=== PATIENT | male | born 1995 | race African-American/Black ===

== ENCOUNTER 2024-03-08 13:46 | Inpatient (IN) | payer OTHER ==
[~2024-03-08] VITALS: Ht 175.3 cm; Wt 89.9 kg
[2024-03-08 16:39] LABS: BASO # 0.2 10^3/uL (0.0-0.2); BASO % 0.6 % (0.0-1.0); EOS # 0.1 10^3/uL (0.0-0.5); EOS % 0.3 % (0.0-3.0); HEMATOCRIT 52.3 % (42.0-52.0); HEMOGLOBIN 18.6 g/dl (13.5-17.5); LYMPH # 2.4 10^3/uL (1.5-5.0); MEAN CORPUSCULAR HEMOGLOBIN 31.4 pg (27.0-33.0); MEAN CORPUSCULAR HGB CONC 35.6 g/dl (32.0-36.5); MEAN CORPUSCULAR VOLUME 88.3 fl (80.0-96.0); MONO % 8.8 % (2.0-8.0); NEUTROPHILS # 24.7 10^3/uL (1.5-8.5); PLATELET COUNT, AUTOMATED 193 10^3/uL (150-450); RED BLOOD COUNT 5.92 10^6/uL (4.30-6.10)
[2024-03-08 16:44] LABS: MONO # 2.7 10^3/uL (0.0-0.8); WHITE BLOOD COUNT 30.5 10^3/uL (4.0-10.0)
[2024-03-08] MEDS: PANTOPRAZOLE 40MG VIAL IV ONE (17:10)
[2024-03-08] MEDS: NS 2,660 ML in IV 1 EA IV ONE (17:10)
[2024-03-08] MEDS: ACETAMINOPHEN 325 MG TAB PO ONE (17:10)
[2024-03-08 17:11] LABS: LIPASE 86 U/L (12-53)
[2024-03-08 17:31] LABS: AMYLASE 651 U/L (30-118)
[2024-03-08 17:43] LABS: PROCALCITONIN 14.57 ng/ml
[2024-03-08 17:59] LABS: ALBUMIN 4.5 G/DL (3.2-5.2); ALKALINE PHOSPHATASE 127 U/L (46-116); ALT/SGPT 918 U/L (7.0-40); AST/SGOT > 6000 U/L (<34); BILIRUBIN,DIRECT 0.3 MG/DL (<0.4); BLOOD UREA NITROGEN 27 MG/DL (9-23); CALCIUM LEVEL 7.9 MG/DL (8.5-10.1); CARBON DIOXIDE LEVEL 17 MMOL/L (20-31); CHLORIDE LEVEL 96 MMOL/L (98-107); CK-MB VALUE MASS 1347.8 NG/ML (<3.6); CREATININE FOR GFR 3.17 MG/DL (0.70-1.30); GLOMERULAR FILTRATION RATE 29.9 (>60); GLUCOSE, FASTING 91 MG/DL (60-100); MAGNESIUM LEVEL 4.4 MG/DL (1.8-2.4); PHOSPHORUS LEVEL 8.4 MG/DL (2.5-4.9); SODIUM LEVEL 132 MMOL/L (136-145); TOTAL PROTEIN 8.2 G/DL (5.7-8.2)
[2024-03-08 19:10] LABS: C REACTIVE PROTEIN QUANTITATIV < 0.40 MG/DL (<1.0); ETHYL ALCOHOL (ETHANOL) < 0.003 % (0.000-0.010)
[2024-03-08 19:11] LABS: SALICYLATE LEVEL 4.1 MG/DL (<30)
[2024-03-08 19:19] LABS: ABG BASE EXCESS -12.7 (-2.0-2.0); ABG HCO3 12.9 MMOL/L (22.0-26.0); ABG O2 SATURATION 97.9 % (95.0-99.0); ABG PARTIAL PRESSURE O2 119.6 mmHg (75.0-100.0); ABG STANDARD HCO3 14.9 MMOL/L. (22.0-26.0); ABG TOTAL CO2 13.8 MMOL/L (22.0-29.0); ABG pH (ARTERIAL) 7.252 UNITS (7.350-7.450)
[2024-03-08 19:28] LABS: INR 1.58; PARTIAL THROMBOPLASTIN TIME 34.3 SECONDS (24.8-34.2); PROTHROMBIN TIME 18.3 SECONDS (12.5-14.5)
[2024-03-08] MEDS: MORPHINE 2 MG/ML 1ML VIAL IV ONE (19:30)
[2024-03-08] MEDS: PIPERACILLIN/TAZOBACTAM SOD 4.5 GM in D5W MINI-BAG PLUS 50 ML IV ONE (19:30)
[2024-03-08 19:53] LABS: CK-MB VALUE MASS 1240.3 NG/ML (<3.6)
[2024-03-08] MEDS: SODIUM BICARBONATE 150 MEQ in D5W 1,000 ML IV SCH (20:19)
[2024-03-08] MEDS ORDERED: PIPERACILLIN/TAZOBACTAM SOD 4.5 GM in D5W MINI-BAG PLUS 50 ML IV SCH (21:20)
[2024-03-08] MEDS ORDERED: ACETAMINOPHEN TAB 650MG DOSE (2X325MG) PO PRN (21:20)
[2024-03-08] MEDS ORDERED: MOM 30ML SUSPENSION UDC PO PRN (21:20)
[2024-03-08 21:24] LABS: ERYTHROCYTE SEDIMENTATION RATE 17 mm/hr (0-15)
[2024-03-08] MEDS ORDERED: BENA25CA4 PO (21:36)
[2024-03-08] MEDS ORDERED: HOME MED LIST COMPLETE! XX SCH (21:40)
[2024-03-08] MEDS ORDERED: PROHANCE 279.3MG/ML 5ML VIAL As Ordered ONE (21:54)
[2024-03-08] MEDS ORDERED: PROHANCE 279.3MG/ML 15ML VIAL As Ordered ONE (21:54)
[2024-03-08 22:36] LABS: CK-MB VALUE MASS 1302.1 NG/ML (<3.6)
[2024-03-08] MEDS: VANCOMYCIN HCL 1,000 MG, VIAL MATE ADAPTER 1 EACH in NS 250 ML IV SCH (23:49)
[2024-03-08 23:58] LABS: HEMATOCRIT 45.2 % (42.0-52.0); MEAN CORPUSCULAR HEMOGLOBIN 31.2 pg (27.0-33.0); MEAN CORPUSCULAR HGB CONC 35.4 g/dl (32.0-36.5); MEAN CORPUSCULAR VOLUME 88.1 fl (80.0-96.0); PLATELET COUNT, AUTOMATED 124 10^3/uL (150-450); RED BLOOD COUNT 5.13 10^6/uL (4.30-6.10); WHITE BLOOD COUNT 23.5 10^3/uL (4.0-10.0)
[2024-03-09] VITALS (7 sets, daily range): BP systolic 138–163; BP diastolic 84–93; TEMP 97.4–99.9; O2SAT 96–98
[2024-03-09] MEDS: SODIUM BICARBONATE 75 MEQ in NS 0.45% 1,000 ML IV SCH (00:26)
[2024-03-09] MEDS: MORPHINE 2 MG/ML 1ML VIAL IV PRN (00:27)
[2024-03-09 00:36] LABS: CK-MB VALUE MASS 1432.1 NG/ML (<3.6)
[2024-03-09 00:44] LABS: ALBUMIN 3.2 G/DL (3.2-5.2); ALKALINE PHOSPHATASE 97 U/L (46-116); ALT/SGPT 1235 U/L (7.0-40); AST/SGOT > 6000 U/L (<34); BILIRUBIN,TOTAL 1.2 MG/DL (0.3-1.2); BLOOD UREA NITROGEN 35 MG/DL (9-23); CALCIUM LEVEL 6.5 MG/DL (8.5-10.1); CARBON DIOXIDE LEVEL 19 MMOL/L (20-31); CHLORIDE LEVEL 101 MMOL/L (98-107); CREATININE FOR GFR 3.59 MG/DL (0.70-1.30); GLOMERULAR FILTRATION RATE 25.9 (>60); GLUCOSE, FASTING 105 MG/DL (60-100); POTASSIUM SERUM 5.3 MMOL/L (3.5-5.1); SODIUM LEVEL 133 MMOL/L (136-145)
[2024-03-09] MEDS: VANCOMYCIN HCL 1,000 MG, VIAL MATE ADAPTER 1 EACH in NS 250 ML IV ONE (00:52)
[2024-03-09 00:58] LABS: HEPATITIS B SURFACE ANTIGEN NEGATIVE (NEGATIVE)
[2024-03-09 01:11] LABS: HIV 1&2 SCREEN NEGATIVE (NEGATIVE)
[2024-03-09 01:19] LABS: HEPATITIS B CORE ANTIBODY IGM NEGATIVE (NEGATIVE); HEPATITIS C VIRUS ABY INDEX < 0.02 INDEX (<0.8)
[2024-03-09 01:20] LABS: LDH LACTATE DEHYDROGENASE > 4500 U/L (120-246); URIC ACID 23.6 MG/DL (3.7-9.2)
[2024-03-09] MEDS: PIPERACILLIN/TAZOBACTAM SOD 3.375 GM in D5W MINI-BAG PLUS 50 ML IV SCH (01:52)
[2024-03-09] MEDS: CALCIUM GLUCONATE 1,000 MG in D5W MINI-BAG PLUS 100 ML IV ONE ×4 (01:58→17:36)
[2024-03-09 02:17] LABS: MAGNESIUM LEVEL 3.1 MG/DL (1.8-2.4)
[2024-03-09] MEDS: FUROSEMIDE 40MG/4ML VIAL IV ONE (02:34)
[2024-03-09 05:51] LABS: HEMATOCRIT 39.7 % (42.0-52.0); HEMOGLOBIN 14.2 g/dl (13.5-17.5); MEAN CORPUSCULAR HEMOGLOBIN 31.1 pg (27.0-33.0); MEAN CORPUSCULAR HGB CONC 35.8 g/dl (32.0-36.5); MEAN CORPUSCULAR VOLUME 86.9 fl (80.0-96.0); PLATELET COUNT, AUTOMATED 103 10^3/uL (150-450); RED BLOOD COUNT 4.57 10^6/uL (4.30-6.10); WHITE BLOOD COUNT 18.6 10^3/uL (4.0-10.0)
[2024-03-09 06:18] LABS: PROCALCITONIN 31.88 ng/ml
[2024-03-09 06:21] LABS: ABG BASE EXCESS -9.5 (-2.0-2.0); ABG HCO3 15.3 MMOL/L (22.0-26.0); ABG O2 SATURATION 96.9 % (95.0-99.0); ABG PARTIAL PRESSURE CO2 30.6 mmHg (35.0-45.0); ABG PARTIAL PRESSURE O2 100.6 mmHg (75.0-100.0); ABG TOTAL CO2 16.2 MMOL/L (22.0-29.0); ABG pH (ARTERIAL) 7.316 UNITS (7.350-7.450)
[2024-03-09 07:32] LABS: INR 2.03; PROTHROMBIN TIME 22.2 SECONDS (12.5-14.5)
[2024-03-09 07:36] LABS: ALBUMIN 2.9 G/DL (3.2-5.2); ALKALINE PHOSPHATASE 86 U/L (46-116); ALT/SGPT 1506 U/L (7.0-40); AST/SGOT > 6000 U/L (<34); BILIRUBIN,TOTAL 1.5 MG/DL (0.3-1.2); BLOOD UREA NITROGEN 41 MG/DL (9-23); CALCIUM LEVEL 5.8 MG/DL (8.5-10.1); CARBON DIOXIDE LEVEL 18 MMOL/L (20-31); CHLORIDE LEVEL 98 MMOL/L (98-107); CK-MB VALUE MASS 1333.9 NG/ML (<3.6); CREATININE FOR GFR 4.05 MG/DL (0.70-1.30); GLOMERULAR FILTRATION RATE 22.5 (>60); GLUCOSE, FASTING 105 MG/DL (60-100); MAGNESIUM LEVEL 2.8 MG/DL (1.8-2.4); POTASSIUM SERUM 4.4 MMOL/L (3.5-5.1); SODIUM LEVEL 130 MMOL/L (136-145); TOTAL PROTEIN 5.3 G/DL (5.7-8.2)
[2024-03-09] MEDS: PHYTONADIONE 5 MG TAB PO ONE (09:47)
[2024-03-09] MEDS: methylPREDNISolone 40MG 1ML VIAL IV SCH (12:14)
[2024-03-09] MEDS: MORPHINE 4 MG/ML 1ML VIAL IV PRN (12:27)
[2024-03-09 14:53] LABS: ALKALINE PHOSPHATASE 98 U/L (46-116); ALT/SGPT 2376 U/L (7.0-40); AST/SGOT > 6000 U/L (<34); BILIRUBIN,TOTAL 2.3 MG/DL (0.3-1.2); BLOOD UREA NITROGEN 46 MG/DL (9-23); CALCIUM LEVEL 6.3 MG/DL (8.5-10.1); CARBON DIOXIDE LEVEL 21 MMOL/L (20-31); CHLORIDE LEVEL 96 MMOL/L (98-107); CK-MB VALUE MASS 1206.8 NG/ML (<3.6); GLUCOSE, FASTING 87 MG/DL (60-100); MAGNESIUM LEVEL 2.8 MG/DL (1.8-2.4); PHOSPHORUS LEVEL 8.9 MG/DL (2.5-4.9); POTASSIUM SERUM 5.2 MMOL/L (3.5-5.1); SODIUM LEVEL 130 MMOL/L (136-145); TOTAL PROTEIN 5.6 G/DL (5.7-8.2)
[2024-03-09] MEDS: SOD POLYSTYRENE SULFONATE SUSP 15GM 60ML UD PO ONE (16:20)
[2024-03-09 16:53] LABS: MYOGLOBIN SCREEN, URINE POSITIVE (NEGATIVE)
[2024-03-09 17:21] LABS: AMPHETAMINES LEVEL URINE NEGATIVE (NEGATIVE); BARBITURATES URINE NEGATIVE (NEGATIVE); BENZODIAZEPINES URINE NEGATIVE (NEGATIVE); CANNABINOIDS URINE NEGATIVE (NEGATIVE); COCAINE METABOLITE URINE NEGATIVE (NEGATIVE); METHADONE URINE NEGATIVE (NEGATIVE); PHENCYCLIDINE URINE NEGATIVE (NEGATIVE)
[2024-03-09 17:23] LABS: OPIATES URINE POSITIVE (NEGATIVE)
[2024-03-09 20:23] LABS: ALBUMIN 2.9 G/DL (3.2-5.2); ALKALINE PHOSPHATASE 96 U/L (46-116); ALT/SGPT 2917 U/L (7.0-40); AST/SGOT > 6000 U/L (<34); BILIRUBIN,TOTAL 2.2 MG/DL (0.3-1.2); BLOOD UREA NITROGEN 54 MG/DL (9-23); CALCIUM LEVEL 6.3 MG/DL (8.5-10.1); CARBON DIOXIDE LEVEL 19 MMOL/L (20-31); CHLORIDE LEVEL 94 MMOL/L (98-107); CREATININE FOR GFR 5.34 MG/DL (0.70-1.30); GLOMERULAR FILTRATION RATE 16.4 (>60); GLUCOSE, FASTING 103 MG/DL (60-100); MAGNESIUM LEVEL 2.6 MG/DL (1.8-2.4); PHOSPHORUS LEVEL 8.2 MG/DL (2.5-4.9); POTASSIUM SERUM 5.1 MMOL/L (3.5-5.1); SODIUM LEVEL 126 MMOL/L (136-145); TOTAL PROTEIN 5.5 G/DL (5.7-8.2)
[2024-03-10] VITALS (43 sets, daily range): BP systolic 135–171; BP diastolic 80–105; TEMP 97.5–99.8; O2SAT 92–100
[2024-03-10 03:07] LABS: ALBUMIN 2.7 G/DL (3.2-5.2); ALKALINE PHOSPHATASE 92 U/L (46-116); ALT/SGPT 3019 U/L (7.0-40); AST/SGOT > 6000 U/L (<34); BILIRUBIN,TOTAL 2.3 MG/DL (0.3-1.2); BLOOD UREA NITROGEN 60 MG/DL (9-23); CALCIUM LEVEL 5.6 MG/DL (8.5-10.1); CARBON DIOXIDE LEVEL 21 MMOL/L (20-31); CHLORIDE LEVEL 90 MMOL/L (98-107); CREATININE FOR GFR 6.16 MG/DL (0.70-1.30); GLOMERULAR FILTRATION RATE 13.9 (>60); GLUCOSE, FASTING 105 MG/DL (60-100); MAGNESIUM LEVEL 2.4 MG/DL (1.8-2.4); PHOSPHORUS LEVEL 8.7 MG/DL (2.5-4.9); POTASSIUM SERUM 5.1 MMOL/L (3.5-5.1); SODIUM LEVEL 123 MMOL/L (136-145)
[2024-03-10] MEDS: NS 1,000 ML IV SCH (03:59)
[2024-03-10] MEDS: CALCIUM GLUCONATE 1,000 MG in D5W MINI-BAG PLUS 100 ML IV ONE ×2 (06:41→09:46)
[2024-03-10] MEDS: FUROSEMIDE 100MG/10ML VIAL IV ONE (06:42)
[2024-03-10] MEDS ORDERED: SODIUM CHLORIDE 0.9% 1000ML IV PRN (08:25)
[2024-03-10] MEDS ORDERED: HEPARIN 1,000UNITS/ML 10ML VIAL (FOR RADIOLOGY & DIALYSIS ONLY) XX SCH (08:25)
[2024-03-10] MEDS ORDERED: HEPARIN 1,000UNITS/ML 10ML VIAL (FOR RADIOLOGY & DIALYSIS ONLY) IV PRN (08:25)
[2024-03-10 11:26] LABS: BASO % 0.2 % (0.0-1.0); LYMPH # 0.7 10^3/uL (1.5-5.0); LYMPH % 5.1 % (24.0-44.0); MEAN CORPUSCULAR HEMOGLOBIN 31.1 pg (27.0-33.0); MEAN CORPUSCULAR HGB CONC 36.5 g/dl (32.0-36.5); MEAN CORPUSCULAR VOLUME 85.4 fl (80.0-96.0); MONO # 0.3 10^3/uL (0.0-0.8); MONO % 2.3 % (2.0-8.0); NEUTROPHILS # 11.8 10^3/uL (1.5-8.5); NEUTROPHILS % 91.8 % (36.0-66.0); RED BLOOD COUNT 3.63 10^6/uL (4.30-6.10); WHITE BLOOD COUNT 12.8 10^3/uL (4.0-10.0)
[2024-03-10 11:37] LABS: INR 2.55; PARTIAL THROMBOPLASTIN TIME 38.4 SECONDS (24.8-34.2); PROTHROMBIN TIME 26.5 SECONDS (12.5-14.5)
[2024-03-10 11:51] LABS: FREE T4 0.71 NG/DL (0.89-1.76); THYROID STIMULATING HORMONE 1.433 uIU/ML (0.55-4.78)
[2024-03-10 11:53] LABS: HEMOGLOBIN 11.3 g/dl (13.5-17.5)
[2024-03-10 11:54] LABS: PLATELET COUNT, AUTOMATED 47 10^3/uL (150-450)
[2024-03-10] MEDS: PHYTONADIONE 5 MG TAB PO ONE (12:07)
[2024-03-10 12:20] LABS: ALBUMIN 2.5 G/DL (3.2-5.2); ALKALINE PHOSPHATASE 88 U/L (46-116); ALT/SGPT 3327 U/L (7.0-40); AST/SGOT > 6000 U/L (<34); BILIRUBIN,TOTAL 2.6 MG/DL (0.3-1.2); BLOOD UREA NITROGEN 62 MG/DL (9-23); CARBON DIOXIDE LEVEL 21 MMOL/L (20-31); CHLORIDE LEVEL 94 MMOL/L (98-107); CREATININE FOR GFR 6.36 MG/DL (0.70-1.30); FERRITIN 14747.8 NG/ML (10.5-307.3); FREE T3 1.2 PG/ML (2.3-4.2); GLOMERULAR FILTRATION RATE 13.4 (>60); GLUCOSE, FASTING 106 MG/DL (60-100); MAGNESIUM LEVEL 2.1 MG/DL (1.8-2.4); POTASSIUM SERUM 4.6 MMOL/L (3.5-5.1); SODIUM LEVEL 127 MMOL/L (136-145); TOTAL PROTEIN 4.8 G/DL (5.7-8.2)
[2024-03-10] MEDS: D5W IV ONE ×2 (15:44→20:00)
[2024-03-10] MEDS: ACETYLCYSTEINE IV ONE ×2 (15:44→20:00)
[2024-03-10] MEDS: ACETYLCYSTEINE 4,600 MG in D5W 500 ML IV ONE (16:55)
[2024-03-10 17:25] LABS: ALBUMIN 2.3 G/DL (3.2-5.2); BLOOD UREA NITROGEN 35 MG/DL (9-23); CALCIUM LEVEL 6.6 MG/DL (8.5-10.1); CARBON DIOXIDE LEVEL 21 MMOL/L (20-31); CHLORIDE LEVEL 101 MMOL/L (98-107); CREATININE FOR GFR 3.92 MG/DL (0.70-1.30); GLOMERULAR FILTRATION RATE 23.4 (>60); GLUCOSE, FASTING 122 MG/DL (60-100); PHOSPHORUS LEVEL 6.9 MG/DL (2.5-4.9); SODIUM LEVEL 134 MMOL/L (136-145); TRIGLYCERIDES LEVEL 105 MG/DL (<150)
[2024-03-11] VITALS (45 sets, daily range): BP systolic 140–162; BP diastolic 78–97; TEMP 88.3–100.4; O2SAT 94–100
[2024-03-11] MEDS: PIPERACILLIN/TAZOBACTAM SOD 4.5 GM in D5W MINI-BAG PLUS 50 ML IV SCH (00:28)
[2024-03-11] MEDS ORDERED: HEPARIN 1,000UNITS/ML 10ML VIAL (FOR RADIOLOGY & DIALYSIS ONLY) XX SCH (03:50)
[2024-03-11] MEDS ORDERED: SODIUM CHLORIDE 0.9% 1000ML IV PRN (03:50)
[2024-03-11 05:08] LABS: BASO % 0.2 % (0.0-1.0); EOS % 0.1 % (0.0-3.0); HEMATOCRIT 27.5 % (42.0-52.0); HEMOGLOBIN 10.1 g/dl (13.5-17.5); LYMPH # 1.2 10^3/uL (1.5-5.0); LYMPH % 7.5 % (24.0-44.0); MEAN CORPUSCULAR VOLUME 84.4 fl (80.0-96.0); MONO # 0.7 10^3/uL (0.0-0.8); MONO % 4.6 % (2.0-8.0); NEUTROPHILS # 13.4 10^3/uL (1.5-8.5); NEUTROPHILS % 84.8 % (36.0-66.0); RED BLOOD COUNT 3.26 10^6/uL (4.30-6.10); WHITE BLOOD COUNT 15.8 10^3/uL (4.0-10.0)
[2024-03-11 05:14] LABS: MEAN CORPUSCULAR HGB CONC 36.7 g/dl (32.0-36.5); PLATELET COUNT, AUTOMATED 41 10^3/uL (150-450)
[2024-03-11 06:41] LABS: ALBUMIN 2.4 G/DL (3.2-5.2); ALKALINE PHOSPHATASE 90 U/L (46-116); ALT/SGPT 4927 U/L (7.0-40); AST/SGOT > 6000 U/L (<34); BLOOD UREA NITROGEN 54 MG/DL (9-23); CALCIUM LEVEL 6.1 MG/DL (8.5-10.1); CARBON DIOXIDE LEVEL 20 MMOL/L (20-31); CHLORIDE LEVEL 98 MMOL/L (98-107); CPK CREATINE PHOSPHOKINASE > 39000 U/L (46-171); CREATININE FOR GFR 6.29 MG/DL (0.70-1.30); GLOMERULAR FILTRATION RATE 13.6 (>60); GLUCOSE, FASTING 99 MG/DL (60-100); SODIUM LEVEL 130 MMOL/L (136-145); TOTAL PROTEIN 4.7 G/DL (5.7-8.2)
[2024-03-11 06:41] LABS: CPK CREATINE PHOSPHOKINASE > 39000 U/L (46-171)
[2024-03-11 07:04] LABS: CPK CREATINE PHOSPHOKINASE > 39000 U/L (46-171)
[2024-03-11 07:05] LABS: CPK CREATINE PHOSPHOKINASE > 39000 U/L (46-171)
[2024-03-11 07:06] LABS: CPK CREATINE PHOSPHOKINASE > 39000 U/L (46-171)
[2024-03-11 07:07] LABS: CPK CREATINE PHOSPHOKINASE > 39000 U/L (46-171)
[2024-03-11 07:08] LABS: CPK CREATINE PHOSPHOKINASE > 39000 U/L (46-171)
[2024-03-11 07:08] LABS: CPK CREATINE PHOSPHOKINASE > 39000 U/L (46-171)
[2024-03-11 07:08] LABS: CPK CREATINE PHOSPHOKINASE > 39000 U/L (46-171)
[2024-03-11] MEDS: ONDANSETRON 4MG 2ML VIAL IV PRN (09:28)
[2024-03-11] MEDS: HEPARIN 1,000UNITS/ML 10ML VIAL (FOR RADIOLOGY & DIALYSIS ONLY) IV PRN (10:05)
[2024-03-11 12:11] LABS: HEPATITIS B CORE ANTIBODY IGG NON-REACTIVE (NON-REACTIVE)
[2024-03-11] MEDS: SENNA 8.6 MG TAB (SENOKOT) PO SCH (20:25)
[2024-03-12] VITALS (40 sets, daily range): BP systolic 134–195; BP diastolic 75–92; TEMP 98.3–99.6; O2SAT 93–99
[2024-03-12] MEDS ORDERED: SODIUM CHLORIDE 0.9% 1000ML IV PRN (00:10)
[2024-03-12] MEDS ORDERED: HEPARIN 1,000UNITS/ML 10ML VIAL (FOR RADIOLOGY & DIALYSIS ONLY) IV PRN (00:10)
[2024-03-12 05:42] LABS: BASO # 0.1 10^3/uL (0.0-0.2); BASO % 0.5 % (0.0-1.0); EOS # 0.4 10^3/uL (0.0-0.5); EOS % 2.8 % (0.0-3.0); HEMATOCRIT 25.9 % (42.0-52.0); HEMOGLOBIN 9.4 g/dl (13.5-17.5); LYMPH # 1.7 10^3/uL (1.5-5.0); MEAN CORPUSCULAR HGB CONC 36.3 g/dl (32.0-36.5); MEAN CORPUSCULAR VOLUME 85.5 fl (80.0-96.0); MONO # 1.1 10^3/uL (0.0-0.8); MONO % 7.5 % (2.0-8.0); NEUTROPHILS # 11.3 10^3/uL (1.5-8.5); NEUTROPHILS % 74.2 % (36.0-66.0); RED BLOOD COUNT 3.03 10^6/uL (4.30-6.10); WHITE BLOOD COUNT 15.2 10^3/uL (4.0-10.0)
[2024-03-12 05:47] LABS: PLATELET COUNT, AUTOMATED 43 10^3/uL (150-450)
[2024-03-12 06:42] LABS: ALBUMIN 2.4 G/DL (3.2-5.2); ALKALINE PHOSPHATASE 92 U/L (46-116); ALT/SGPT 3751 U/L (7.0-40); AST/SGOT 3223 U/L (<34); BILIRUBIN,TOTAL 1.7 MG/DL (0.3-1.2); BLOOD UREA NITROGEN 54 MG/DL (9-23); CALCIUM LEVEL 6.4 MG/DL (8.5-10.1); CARBON DIOXIDE LEVEL 22 MMOL/L (20-31); CHLORIDE LEVEL 100 MMOL/L (98-107); CPK CREATINE PHOSPHOKINASE > 39000 U/L (46-171); CREATININE FOR GFR 6.43 MG/DL (0.70-1.30); GLOMERULAR FILTRATION RATE 13.2 (>60); GLUCOSE, FASTING 79 MG/DL (60-100); POTASSIUM SERUM 4.5 MMOL/L (3.5-5.1); SODIUM LEVEL 132 MMOL/L (136-145); TOTAL PROTEIN 4.4 G/DL (5.7-8.2)
[2024-03-12] MEDS: HEPARIN 1,000UNITS/ML 10ML VIAL (FOR RADIOLOGY & DIALYSIS ONLY) XX SCH (08:38)
[2024-03-12] MEDS: oxyCODONE 5MG TAB PO PRN (15:00)
[2024-03-12] MEDS ORDERED: PILL CUTTER 1 EACH XX PRN (22:15)
[2024-03-12] MEDS: **hydrALAZINE HCL** 25 MG TAB PO ONE (22:26)
[2024-03-13] VITALS (19 sets, daily range): BP systolic 157–180; BP diastolic 76–100; TEMP 97.9–98.6; O2SAT 90–96
[2024-03-13] MEDS: **hydrALAZINE HCL** 25 MG TAB PO ONE (00:05)
[2024-03-13 05:21] LABS: HEMOGLOBIN 9.8 g/dl (13.5-17.5); MEAN CORPUSCULAR HEMOGLOBIN 31.2 pg (27.0-33.0); MEAN CORPUSCULAR HGB CONC 36.3 g/dl (32.0-36.5); RED BLOOD COUNT 3.14 10^6/uL (4.30-6.10); WHITE BLOOD COUNT 19.5 10^3/uL (4.0-10.0)
[2024-03-13 05:22] LABS: PLATELET COUNT, AUTOMATED 61 10^3/uL (150-450)
[2024-03-13] MEDS ORDERED: SODIUM CHLORIDE 0.9% 1000ML IV PRN (05:30)
[2024-03-13] MEDS ORDERED: HEPARIN 1,000UNITS/ML 10ML VIAL (FOR RADIOLOGY & DIALYSIS ONLY) XX SCH (05:30)
[2024-03-13 05:40] LABS: C REACTIVE PROTEIN QUANTITATIV 9.1 MG/DL (<1.0)
[2024-03-13 05:41] LABS: INR 1.3; PARTIAL THROMBOPLASTIN TIME 33.6 SECONDS (24.8-34.2); PROTHROMBIN TIME 15.8 SECONDS (12.5-14.5)
[2024-03-13 05:46] LABS: ATYPICAL LYMPH 1 % (0-5); EOSINOPHILS 7 % (0-3); LYMPHOCYTES 8 % (16-44); METAMYELOCYTES 1 % (0-0); MONOCYTES 6 % (0-5); NEUTROPHILS 75 % (28-66); PLATELET ESTIMATE DECREASED (NORMAL)
[2024-03-13 05:48] LABS: PROCALCITONIN 6.51 ng/ml
[2024-03-13 06:28] LABS: ALBUMIN 2.4 G/DL (3.2-5.2); BILIRUBIN,TOTAL 1.6 MG/DL (0.3-1.2); CALCIUM LEVEL 6.9 MG/DL (8.5-10.1); CREATININE FOR GFR 6.89 MG/DL (0.70-1.30); GLOMERULAR FILTRATION RATE 12.2 (>60); MAGNESIUM LEVEL 1.9 MG/DL (1.8-2.4); POTASSIUM SERUM 4.1 MMOL/L (3.5-5.1); TOTAL PROTEIN 4.6 G/DL (5.7-8.2)
[2024-03-13] MEDS: amLODIPine 5 MG TAB PO ONE (06:37)
[2024-03-13] MEDS ORDERED: amLODIPine 5 MG TAB PO SCH (09:00)
[2024-03-13] MEDS: HEPARIN 1,000UNITS/ML 10ML VIAL (FOR RADIOLOGY & DIALYSIS ONLY) IV PRN (09:10)
[2024-03-13] MEDS: DARBEPOETIN 100MCG/0.5ML *DIALYSIS* SYRINGE IV SCH (09:11)
[2024-03-13] MEDS: **hydrALAZINE HCL** 25 MG TAB PO SCH (19:12)
[2024-03-13] MEDS: oxyCODONE 5MG TAB PO PRN (19:12)
[2024-03-13] MEDS: amLODIPine 5 MG TAB PO SCH (20:41)
[2024-03-14] VITALS (8 sets, daily range): BP systolic 154–210; BP diastolic 74–102; TEMP 98–99.3; O2SAT 96–97
[2024-03-14 05:40] LABS: BASO # 0.2 10^3/uL (0.0-0.2); BASO % 0.7 % (0.0-1.0); EOS # 1.3 10^3/uL (0.0-0.5); EOS % 5.6 % (0.0-3.0); HEMATOCRIT 28.1 % (42.0-52.0); LYMPH # 1.8 10^3/uL (1.5-5.0); MEAN CORPUSCULAR HEMOGLOBIN 30.8 pg (27.0-33.0); MEAN CORPUSCULAR HGB CONC 35.6 g/dl (32.0-36.5); MEAN CORPUSCULAR VOLUME 86.5 fl (80.0-96.0); MONO # 1.2 10^3/uL (0.0-0.8); MONO % 5.5 % (2.0-8.0); NEUTROPHILS # 15.5 10^3/uL (1.5-8.5); NEUTROPHILS % 68.9 % (36.0-66.0); RED BLOOD COUNT 3.25 10^6/uL (4.30-6.10); WHITE BLOOD COUNT 22.5 10^3/uL (4.0-10.0)
[2024-03-14 05:51] LABS: PLATELET COUNT, AUTOMATED 77 10^3/uL (150-450)
[2024-03-14 06:01] LABS: C REACTIVE PROTEIN QUANTITATIV 7.9 MG/DL (<1.0)
[2024-03-14 06:38] LABS: ALBUMIN 2.2 G/DL (3.2-5.2); BILIRUBIN,TOTAL 1.3 MG/DL (0.3-1.2); CALCIUM LEVEL 7.4 MG/DL (8.5-10.1); CREATININE FOR GFR 6.23 MG/DL (0.70-1.30); GLOMERULAR FILTRATION RATE 13.7 (>60); POTASSIUM SERUM 4.1 MMOL/L (3.5-5.1); TOTAL PROTEIN 4.6 G/DL (5.7-8.2)
[2024-03-14] MEDS ORDERED: HEPARIN 1,000UNITS/ML 10ML VIAL (FOR RADIOLOGY & DIALYSIS ONLY) XX SCH (11:20)
[2024-03-14] MEDS ORDERED: SODIUM CHLORIDE 0.9% 1000ML IV PRN (11:20)
[2024-03-14] MEDS ORDERED: HEPARIN 1,000UNITS/ML 10ML VIAL (FOR RADIOLOGY & DIALYSIS ONLY) IV PRN (11:20)
[2024-03-14] MEDS ORDERED: **hydrALAZINE** 50 MG TAB PO SCH (12:00)
[2024-03-14] MEDS: METOPROLOL TART 25 MG TABLET PO SCH (12:33)
[2024-03-15 00:39] VITALS: BP 156/90; TEMP 98.3; O2SAT 92
[2024-03-15] MEDS ORDERED: amLODIPine 5 MG TAB As Ordered ONE (09:27)
[2024-03-15 11:35] VITALS: BP 149/87; TEMP 99.4; O2SAT 92
[2024-03-15] MEDS ORDERED: METOPROLOL TART 25 MG TABLET As Ordered ONE (12:07)
[2024-03-15 15:57] LABS: BASO # 0.1 10^3/uL (0.0-0.2); BASO % 0.4 % (0.0-1.0); EOS # 1.5 10^3/uL (0.0-0.5); HEMOGLOBIN 9.3 g/dl (13.5-17.5); LYMPH # 2.2 10^3/uL (1.5-5.0); LYMPH % 11.9 % (24.0-44.0); MEAN CORPUSCULAR HGB CONC 35.8 g/dl (32.0-36.5); MEAN CORPUSCULAR VOLUME 86.7 fl (80.0-96.0); MONO # 1.1 10^3/uL (0.0-0.8); MONO % 6.2 % (2.0-8.0); NEUTROPHILS # 11.5 10^3/uL (1.5-8.5); NEUTROPHILS % 63.8 % (36.0-66.0); PLATELET COUNT, AUTOMATED 114 10^3/uL (150-450); WHITE BLOOD COUNT 18.1 10^3/uL (4.0-10.0)
[2024-03-15 16:14] LABS: ALBUMIN 2.2 G/DL (3.2-5.2); CALCIUM LEVEL 7.7 MG/DL (8.5-10.1); GLOMERULAR FILTRATION RATE 14.3 (>60)
[2024-03-15 16:16] VITALS: BP 174/98; TEMP 97.7; O2SAT 95
[2024-03-15 17:13] LABS: Anaplasma phagocytophilum NOT DETECTED (NOT DETECT); BORRELIA SPECIES DNA NOT DETECTED (NOT DETECT); Babesia microti NOT DETECTED (NOT DETECT); Ehrlichia chaffeensis NOT DETECTED (NOT DETECT)
[2024-03-15 17:43] LABS: PHOSPHORUS LEVEL 4.5 MG/DL (2.5-4.9)
[2024-03-15 19:00] VITALS: BP 151/75; TEMP 98.3; O2SAT 97
[2024-03-15 23:49] VITALS: BP 170/95; TEMP 98.3; O2SAT 95
[2024-03-16] VITALS (7 sets, daily range): BP systolic 143–177; BP diastolic 72–97; TEMP 96.9–99; O2SAT 92–98
[2024-03-16] MEDS ORDERED: SODIUM CHLORIDE 0.9% 1000ML IV PRN (06:00)
[2024-03-16] MEDS ORDERED: HEPARIN 1,000UNITS/ML 10ML VIAL (FOR RADIOLOGY & DIALYSIS ONLY) IV PRN (06:00)
[2024-03-16] MEDS ORDERED: LIDOCAINE 1% SDV 5ML VIAL SC PRN (06:00)
[2024-03-16 06:52] LABS: HEMATOCRIT 25.4 % (42.0-52.0); HEMOGLOBIN 9.1 g/dl (13.5-17.5); MEAN CORPUSCULAR HEMOGLOBIN 30.8 pg (27.0-33.0); MEAN CORPUSCULAR HGB CONC 35.8 g/dl (32.0-36.5); MEAN CORPUSCULAR VOLUME 86.1 fl (80.0-96.0); PLATELET COUNT, AUTOMATED 168 10^3/uL (150-450); RED BLOOD COUNT 2.95 10^6/uL (4.30-6.10); WHITE BLOOD COUNT 18.2 10^3/uL (4.0-10.0)
[2024-03-16 07:19] LABS: ALBUMIN 2.3 G/DL (3.2-5.2); BILIRUBIN,TOTAL 1.3 MG/DL (0.3-1.2); CALCIUM LEVEL 7.9 MG/DL (8.5-10.1); CREATININE FOR GFR 8.54 MG/DL (0.70-1.30); GLOMERULAR FILTRATION RATE 9.5 (>60); MAGNESIUM LEVEL 2.2 MG/DL (1.8-2.4); POTASSIUM SERUM 4.3 MMOL/L (3.5-5.1); TOTAL PROTEIN 4.7 G/DL (5.7-8.2)
[2024-03-16 07:32] LABS: EOSINOPHILS 8 % (0-3); LYMPHOCYTES 20 % (16-44); MONOCYTES 5 % (0-5); NEUTROPHILS 67 % (28-66); PLATELET ESTIMATE NORMAL (NORMAL); POLYCHROMASIA 1+
[2024-03-16 07:33] LABS: ANISOCYTOSIS 1+; POIKILOCYTOSIS 1+
[2024-03-16] MEDS: HEPARIN 1,000UNITS/ML 10ML VIAL (FOR RADIOLOGY & DIALYSIS ONLY) XX SCH (09:12)
[2024-03-16] MEDS: SENOKOT S TAB PO PRN (12:46)
[2024-03-17 04:00] VITALS: BP 142/88; TEMP 98.8; O2SAT 96
[2024-03-17 09:20] LABS: BASO # 0.1 10^3/uL (0.0-0.2); BASO % 0.4 % (0.0-1.0); EOS # 0.9 10^3/uL (0.0-0.5); EOS % 5.5 % (0.0-3.0); HEMATOCRIT 23.8 % (42.0-52.0); HEMOGLOBIN 8.6 g/dl (13.5-17.5); LYMPH # 2.3 10^3/uL (1.5-5.0); MEAN CORPUSCULAR HGB CONC 36.1 g/dl (32.0-36.5); MEAN CORPUSCULAR VOLUME 85.9 fl (80.0-96.0); MONO # 1.3 10^3/uL (0.0-0.8); MONO % 7.6 % (2.0-8.0); NEUTROPHILS # 11.2 10^3/uL (1.5-8.5); NEUTROPHILS % 68.4 % (36.0-66.0); PLATELET COUNT, AUTOMATED 232 10^3/uL (150-450); RED BLOOD COUNT 2.77 10^6/uL (4.30-6.10); WHITE BLOOD COUNT 16.4 10^3/uL (4.0-10.0)
[2024-03-17 09:40] LABS: CALCIUM LEVEL 8.2 MG/DL (8.5-10.1); CREATININE FOR GFR 7.48 MG/DL (0.70-1.30); POTASSIUM SERUM 4.2 MMOL/L (3.5-5.1)
[2024-03-17 12:00] VITALS: BP 149/95; TEMP 98.4; O2SAT 93
[2024-03-17 20:35] VITALS: BP 149/95; TEMP 99.1; O2SAT 97
[2024-03-17 23:47] VITALS: BP 146/93; TEMP 98.1; O2SAT 97
[2024-03-18] MEDS ORDERED: SODIUM CHLORIDE 0.9% 1000ML IV PRN (06:00)
[2024-03-18] MEDS ORDERED: LIDOCAINE 1% SDV 5ML VIAL SC PRN (06:00)
[2024-03-18] MEDS ORDERED: HEPARIN 1,000UNITS/ML 10ML VIAL (FOR RADIOLOGY & DIALYSIS ONLY) IV PRN (06:00)
[2024-03-18 06:40] VITALS: BP 149/93; TEMP 98.1; O2SAT 97
[2024-03-18 06:50] LABS: BASO # 0.1 10^3/uL (0.0-0.2); BASO % 0.4 % (0.0-1.0); EOS # 0.6 10^3/uL (0.0-0.5); EOS % 3.6 % (0.0-3.0); HEMATOCRIT 24.3 % (42.0-52.0); HEMOGLOBIN 8.7 g/dl (13.5-17.5); LYMPH # 1.7 10^3/uL (1.5-5.0); MEAN CORPUSCULAR HEMOGLOBIN 31.1 pg (27.0-33.0); MEAN CORPUSCULAR HGB CONC 35.8 g/dl (32.0-36.5); MEAN CORPUSCULAR VOLUME 86.8 fl (80.0-96.0); MONO # 1.4 10^3/uL (0.0-0.8); MONO % 8.5 % (2.0-8.0); NEUTROPHILS # 12.6 10^3/uL (1.5-8.5); NEUTROPHILS % 75.2 % (36.0-66.0); PLATELET COUNT, AUTOMATED 301 10^3/uL (150-450); WHITE BLOOD COUNT 16.8 10^3/uL (4.0-10.0)
[2024-03-18 07:27] LABS: CALCIUM LEVEL 8.3 MG/DL (8.5-10.1); CREATININE FOR GFR 9.63 MG/DL (0.70-1.30); GLOMERULAR FILTRATION RATE 8.2 (>60); POTASSIUM SERUM 4.5 MMOL/L (3.5-5.1)
[2024-03-18 12:45] VITALS: BP 149/92; TEMP 98.8; O2SAT 99
[2024-03-18] MEDS: HEPARIN 1,000UNITS/ML 10ML VIAL (FOR RADIOLOGY & DIALYSIS ONLY) XX SCH (13:19)
[2024-03-18 19:45] VITALS: BP 150/97; TEMP 98.8; O2SAT 97
[2024-03-18 23:57] VITALS: BP 142/90; TEMP 98.4; O2SAT 95
[2024-03-19 03:38] VITALS: BP 140/89; TEMP 99; O2SAT 92
[2024-03-19 06:00] VITALS: BP 140/89; TEMP 99; O2SAT 92
[2024-03-19] MEDS ORDERED: LIDOCAINE 1% SDV 5ML VIAL SC PRN (06:00)
[2024-03-19] MEDS ORDERED: SODIUM CHLORIDE 0.9% 1000ML IV PRN (06:00)
[2024-03-19] MEDS ORDERED: HEPARIN 1,000UNITS/ML 10ML VIAL (FOR RADIOLOGY & DIALYSIS ONLY) IV PRN (06:00)
[2024-03-19 06:15] LABS: BASO # 0.1 10^3/uL (0.0-0.2); BASO % 0.6 % (0.0-1.0); EOS # 0.3 10^3/uL (0.0-0.5); EOS % 1.9 % (0.0-3.0); HEMATOCRIT 22.9 % (42.0-52.0); HEMOGLOBIN 8.3 g/dl (13.5-17.5); LYMPH # 1.6 10^3/uL (1.5-5.0); LYMPH % 10.6 % (24.0-44.0); MEAN CORPUSCULAR HEMOGLOBIN 31.4 pg (27.0-33.0); MEAN CORPUSCULAR HGB CONC 36.2 g/dl (32.0-36.5); MEAN CORPUSCULAR VOLUME 86.7 fl (80.0-96.0); MONO # 1.4 10^3/uL (0.0-0.8); MONO % 9.6 % (2.0-8.0); NEUTROPHILS # 11.3 10^3/uL (1.5-8.5); NEUTROPHILS % 75.9 % (36.0-66.0); PLATELET COUNT, AUTOMATED 382 10^3/uL (150-450); RED BLOOD COUNT 2.64 10^6/uL (4.30-6.10); WHITE BLOOD COUNT 14.9 10^3/uL (4.0-10.0)
[2024-03-19 06:55] LABS: ALBUMIN 2.6 G/DL (3.2-5.2); BILIRUBIN,DIRECT 0.6 MG/DL (<0.4); BILIRUBIN,TOTAL 1.3 MG/DL (0.3-1.2); CALCIUM LEVEL 8.1 MG/DL (8.5-10.1); CREATININE FOR GFR 6.7 MG/DL (0.70-1.30); GLOMERULAR FILTRATION RATE 12.5 (>60); POTASSIUM SERUM 4.2 MMOL/L (3.5-5.1); TOTAL PROTEIN 5.3 G/DL (5.7-8.2)
[2024-03-19] MEDS: HEPARIN 1,000UNITS/ML 10ML VIAL (FOR RADIOLOGY & DIALYSIS ONLY) XX SCH (11:20)
[2024-03-19 12:30] VITALS: BP 141/90; TEMP 97.9; O2SAT 94
[2024-03-19] MEDS: HEPARIN SOD (PORCINE) 5000UNITS/ML 1ML VIAL/SYRINGE SQ SCH (14:09)
[2024-03-19 19:57] VITALS: BP 142/91; TEMP 98.4; O2SAT 94
[2024-03-20] VITALS (11 sets, daily range): BP systolic 140–165; BP diastolic 90–96; TEMP 97.9–99.1; O2SAT 83–100
[2024-03-20 06:05] LABS: BASO # 0.1 10^3/uL (0.0-0.2); BASO % 0.4 % (0.0-1.0); EOS # 0.3 10^3/uL (0.0-0.5); EOS % 1.7 % (0.0-3.0); HEMATOCRIT 21.8 % (42.0-52.0); HEMOGLOBIN 7.7 g/dl (13.5-17.5); LYMPH % 13.9 % (24.0-44.0); MEAN CORPUSCULAR HEMOGLOBIN 31.2 pg (27.0-33.0); MEAN CORPUSCULAR HGB CONC 35.3 g/dl (32.0-36.5); MEAN CORPUSCULAR VOLUME 88.3 fl (80.0-96.0); MONO # 1.8 10^3/uL (0.0-0.8); MONO % 12.3 % (2.0-8.0); NEUTROPHILS # 10.4 10^3/uL (1.5-8.5); PLATELET COUNT, AUTOMATED 426 10^3/uL (150-450); RED BLOOD COUNT 2.47 10^6/uL (4.30-6.10); WHITE BLOOD COUNT 14.6 10^3/uL (4.0-10.0)
[2024-03-20 06:31] LABS: ALBUMIN 2.6 G/DL (3.2-5.2); BILIRUBIN,DIRECT 0.5 MG/DL (<0.4); BILIRUBIN,TOTAL 1.2 MG/DL (0.3-1.2); CALCIUM LEVEL 7.9 MG/DL (8.5-10.1); CREATININE FOR GFR 5.55 MG/DL (0.70-1.30); GLOMERULAR FILTRATION RATE 15.6 (>60); TOTAL PROTEIN 5.4 G/DL (5.7-8.2)
[2024-03-20 23:25] LABS: ABG HCO3 21.5 MMOL/L (22.0-26.0); ABG O2 SATURATION 99.3 % (95.0-99.0); ABG PARTIAL PRESSURE CO2 31.6 mmHg (35.0-45.0); ABG PARTIAL PRESSURE O2 182.1 mmHg (75.0-100.0); ABG STANDARD HCO3 22.8 MMOL/L. (22.0-26.0); ABG TOTAL CO2 22.5 MMOL/L (22.0-29.0); ABG pH (ARTERIAL) 7.451 UNITS (7.350-7.450)
[2024-03-21 00:05] LABS: ALBUMIN 2.7 G/DL (3.2-5.2); BILIRUBIN,TOTAL 1.3 MG/DL (0.3-1.2); CALCIUM LEVEL 8.3 MG/DL (8.5-10.1); CREATININE FOR GFR 7.14 MG/DL (0.70-1.30); GLOMERULAR FILTRATION RATE 11.6 (>60); POTASSIUM SERUM 4.2 MMOL/L (3.5-5.1); TOTAL PROTEIN 5.7 G/DL (5.7-8.2)
[2024-03-21 00:07] LABS: BASO # 0.1 10^3/uL (0.0-0.2); BASO % 0.5 % (0.0-1.0); EOS # 0.2 10^3/uL (0.0-0.5); EOS % 1.3 % (0.0-3.0); HEMATOCRIT 21.2 % (42.0-52.0); HEMOGLOBIN 7.5 g/dl (13.5-17.5); LYMPH # 1.9 10^3/uL (1.5-5.0); LYMPH % 11.4 % (24.0-44.0); MEAN CORPUSCULAR HGB CONC 35.4 g/dl (32.0-36.5); MEAN CORPUSCULAR VOLUME 87.6 fl (80.0-96.0); MONO # 1.9 10^3/uL (0.0-0.8); MONO % 11.4 % (2.0-8.0); PLATELET COUNT, AUTOMATED 500 10^3/uL (150-450); RED BLOOD COUNT 2.42 10^6/uL (4.30-6.10); WHITE BLOOD COUNT 16.4 10^3/uL (4.0-10.0)
[2024-03-21 03:46] VITALS: BP 172/93; TEMP 97.9; O2SAT 96
[2024-03-21] MEDS: cefTRIAXone SOD 1 GM in D5W MINI-BAG PLUS 50 ML IV SCH (05:11)
[2024-03-21 05:56] LABS: BASO # 0.1 10^3/uL (0.0-0.2); BASO % 0.6 % (0.0-1.0); EOS # 0.1 10^3/uL (0.0-0.5); EOS % 0.7 % (0.0-3.0); HEMATOCRIT 21.1 % (42.0-52.0); HEMOGLOBIN 7.3 g/dl (13.5-17.5); LYMPH # 1.6 10^3/uL (1.5-5.0); LYMPH % 9.3 % (24.0-44.0); MEAN CORPUSCULAR HEMOGLOBIN 30.2 pg (27.0-33.0); MEAN CORPUSCULAR HGB CONC 34.6 g/dl (32.0-36.5); MEAN CORPUSCULAR VOLUME 87.2 fl (80.0-96.0); MONO % 11.3 % (2.0-8.0); NEUTROPHILS # 13.4 10^3/uL (1.5-8.5); NEUTROPHILS % 77.3 % (36.0-66.0); PLATELET COUNT, AUTOMATED 497 10^3/uL (150-450); RED BLOOD COUNT 2.42 10^6/uL (4.30-6.10); WHITE BLOOD COUNT 17.4 10^3/uL (4.0-10.0)
[2024-03-21] MEDS ORDERED: LIDOCAINE 1% SDV 5ML VIAL SC PRN (06:00)
[2024-03-21] MEDS ORDERED: SODIUM CHLORIDE 0.9% 1000ML IV PRN (06:00)
[2024-03-21] MEDS ORDERED: HEPARIN 1,000UNITS/ML 10ML VIAL (FOR RADIOLOGY & DIALYSIS ONLY) IV PRN (06:00)
[2024-03-21 06:27] LABS: ALBUMIN 2.6 G/DL (3.2-5.2); BILIRUBIN,DIRECT 0.5 MG/DL (<0.4); BILIRUBIN,TOTAL 1.1 MG/DL (0.3-1.2); CALCIUM LEVEL 8.2 MG/DL (8.5-10.1); CREATININE FOR GFR 7.78 MG/DL (0.70-1.30); GLOMERULAR FILTRATION RATE 10.5 (>60); POTASSIUM SERUM 4.6 MMOL/L (3.5-5.1); TOTAL PROTEIN 5.6 G/DL (5.7-8.2)
[2024-03-21] MEDS ORDERED: CEFEPIME HCL 2 GM in D5W MINI-BAG PLUS 50 ML IV SCH (07:25)
[2024-03-21] MEDS: HEPARIN 1,000UNITS/ML 10ML VIAL (FOR RADIOLOGY & DIALYSIS ONLY) XX SCH (09:40)
[2024-03-21 13:00] VITALS: BP 162/87; TEMP 98; O2SAT 96
[2024-03-21] MEDS: FUROSEMIDE 100MG/10ML VIAL IV ONE (13:11)
[2024-03-21 16:01] VITALS: BP 157/90; TEMP 98.4; O2SAT 100
[2024-03-21] MEDS: CEFEPIME HCL 1 GM in D5W MINI-BAG PLUS 50 ML IV SCH (16:47)
[2024-03-21 16:57] VITALS: O2SAT 98
[2024-03-21 19:00] VITALS: BP 140/75; TEMP 98.2; O2SAT 96
[2024-03-22] VITALS: BP 176/93; TEMP 98.4; O2SAT 97
[2024-03-22 03:31] VITALS: BP 136/86; TEMP 98.7; O2SAT 95
[2024-03-22] MEDS ORDERED: LIDOCAINE 1% SDV 5ML VIAL SC PRN (06:00)
[2024-03-22] MEDS ORDERED: SODIUM CHLORIDE 0.9% 1000ML IV PRN (06:00)
[2024-03-22] MEDS ORDERED: HEPARIN 1,000UNITS/ML 10ML VIAL (FOR RADIOLOGY & DIALYSIS ONLY) XX SCH (06:00)
[2024-03-22 07:28] VITALS: BP 125/70; TEMP 97.2; O2SAT 95
[2024-03-22] MEDS: HEPARIN 1,000UNITS/ML 10ML VIAL (FOR RADIOLOGY & DIALYSIS ONLY) IV PRN (08:21)
[2024-03-22 08:22] LABS: BASO # 0.1 10^3/uL (0.0-0.2); BASO % 0.7 % (0.0-1.0); EOS # 0.2 10^3/uL (0.0-0.5); EOS % 1.4 % (0.0-3.0); HEMATOCRIT 21.9 % (42.0-52.0); HEMOGLOBIN 7.7 g/dl (13.5-17.5); LYMPH # 2.1 10^3/uL (1.5-5.0); LYMPH % 14.3 % (24.0-44.0); MEAN CORPUSCULAR HEMOGLOBIN 30.9 pg (27.0-33.0); MEAN CORPUSCULAR HGB CONC 35.2 g/dl (32.0-36.5); MONO # 1.9 10^3/uL (0.0-0.8); MONO % 12.8 % (2.0-8.0); NEUTROPHILS # 10.4 10^3/uL (1.5-8.5); NEUTROPHILS % 70.1 % (36.0-66.0); PLATELET COUNT, AUTOMATED 533 10^3/uL (150-450); RED BLOOD COUNT 2.49 10^6/uL (4.30-6.10); WHITE BLOOD COUNT 14.8 10^3/uL (4.0-10.0)
[2024-03-22 09:04] LABS: ALBUMIN 2.8 G/DL (3.2-5.2); BILIRUBIN,DIRECT 0.4 MG/DL (<0.4); BILIRUBIN,TOTAL 0.9 MG/DL (0.3-1.2); CALCIUM LEVEL 8.1 MG/DL (8.5-10.1); CREATININE FOR GFR 5.8 MG/DL (0.70-1.30); GLOMERULAR FILTRATION RATE 14.8 (>60); POTASSIUM SERUM 3.7 MMOL/L (3.5-5.1)
[2024-03-22 12:54] VITALS: BP 151/87; TEMP 97.2; O2SAT 94
[2024-03-22 15:45] VITALS: BP 130/74; TEMP 98.5; O2SAT 99
[2024-03-22] MEDS: LevoFLOXacin 250 MG TABLET PO SCH (17:03)
[2024-03-22 23:53] VITALS: BP 137/79; TEMP 98.7; O2SAT 93
[2024-03-23] VITALS (7 sets, daily range): BP systolic 130–159; BP diastolic 78–91; TEMP 97.7–98; O2SAT 94–99
[2024-03-23 07:17] LABS: BASO # 0.1 10^3/uL (0.0-0.2); EOS # 0.2 10^3/uL (0.0-0.5); EOS % 1.8 % (0.0-3.0); LYMPH # 2.4 10^3/uL (1.5-5.0); LYMPH % 19.5 % (24.0-44.0); MEAN CORPUSCULAR VOLUME 88.5 fl (80.0-96.0); MONO # 1.8 10^3/uL (0.0-0.8); NEUTROPHILS # 7.9 10^3/uL (1.5-8.5); NEUTROPHILS % 63.1 % (36.0-66.0); PLATELET COUNT, AUTOMATED 486 10^3/uL (150-450); RED BLOOD COUNT 2.26 10^6/uL (4.30-6.10); WHITE BLOOD COUNT 12.5 10^3/uL (4.0-10.0)
[2024-03-23 07:38] LABS: CREATININE FOR GFR 4.63 MG/DL (0.70-1.30); GLOMERULAR FILTRATION RATE 19.2 (>60); POTASSIUM SERUM 3.7 MMOL/L (3.5-5.1)
[2024-03-24 04:00] VITALS: BP 155/88; TEMP 98.2; O2SAT 94
[2024-03-24 06:00] VITALS: BP 154/88
[2024-03-24 06:21] LABS: BASO # 0.1 10^3/uL (0.0-0.2); BASO % 1.3 % (0.0-1.0); EOS # 0.2 10^3/uL (0.0-0.5); EOS % 1.9 % (0.0-3.0); HEMATOCRIT 21.3 % (42.0-52.0); HEMOGLOBIN 7.2 g/dl (13.5-17.5); LYMPH # 2.5 10^3/uL (1.5-5.0); LYMPH % 23.1 % (24.0-44.0); MEAN CORPUSCULAR HGB CONC 33.8 g/dl (32.0-36.5); MEAN CORPUSCULAR VOLUME 88.8 fl (80.0-96.0); MONO # 1.5 10^3/uL (0.0-0.8); MONO % 13.9 % (2.0-8.0); NEUTROPHILS # 6.4 10^3/uL (1.5-8.5); NEUTROPHILS % 59.3 % (36.0-66.0); PLATELET COUNT, AUTOMATED 488 10^3/uL (150-450); WHITE BLOOD COUNT 10.8 10^3/uL (4.0-10.0)
[2024-03-24 06:47] LABS: CALCIUM LEVEL 7.9 MG/DL (8.5-10.1); CREATININE FOR GFR 5.1 MG/DL (0.70-1.30); GLOMERULAR FILTRATION RATE 17.2 (>60); POTASSIUM SERUM 3.5 MMOL/L (3.5-5.1)
[2024-03-24] MEDS: POTASSIUM CHLORIDE 10MEQ SR TABLET PO ONE (09:09)
[2024-03-24] MEDS ORDERED: METO50TA7 PO (11:34)
[2024-03-24] MEDS ORDERED: AMLO1TAB24 PO (11:34)
[2024-03-24] MEDS ORDERED: LEVO1TAB38 PO (11:34)
[2024-03-24 12:00] VITALS: BP 156/76; TEMP 97.3; O2SAT 96
[2024-03-24 12:17] VITALS: BP 151/88
[2024-03-24 14:43] LABS: CALCIUM LEVEL 8.2 MG/DL (8.5-10.1); CREATININE FOR GFR 5.03 MG/DL (0.70-1.30); GLOMERULAR FILTRATION RATE 17.4 (>60)
== END 2024-03-24 16:35 | disposition home or self-care (01) | DRG 557 ==
LOC: EDBD 13:46 → M ED 13:46 → M ED INP 21:17 → M PCU 03-09 00:15 → M ICU 03-10 09:32 → M PCU 03-13 16:27 → M MSPAV 03-16 16:09 → M PCU 03-20 23:47 → M MSPAV 03-23 21:48
PROVIDERS: ADMIT Internal Medicine; ATTEND Family Medicine
PROC: 0JH63XZ Insertion of Tunneled Vascular Access Device into Chest Subcutaneous Tissue and Fascia, Percutaneous Approach (ICD-10-PCS; principal; 2024-03-10)
PROC: 02HV33Z Insertion of Infusion Device into Superior Vena Cava, Percutaneous Approach (ICD-10-PCS; 2024-03-10)
PROC: 5A1D70Z Performance of Urinary Filtration, Intermittent, Less than 6 Hours Per Day (ICD-10-PCS; 2024-03-18)
DX: M62.82 Rhabdomyolysis (principal); J18.9 Pneumonia, unspecified organism; N17.9 Acute kidney failure, unspecified; E87.20 Acidosis, unspecified; D68.4 Acquired coagulation factor deficiency; D63.1 Anemia in chronic kidney disease; Z92.21 Personal history of antineoplastic chemotherapy; Z92.3 Personal history of irradiation; K72.90 Hepatic failure, unspecified without coma; E83.41 Hypermagnesemia; E83.39 Other disorders of phosphorus metabolism; E87.5 Hyperkalemia; D75.1 Secondary polycythemia; E86.0 Dehydration; E83.51 Hypocalcemia; R19.7 Diarrhea, unspecified

== ENCOUNTER → 2024-10-25 | Outpatient (CLI) | payer OTHER ==
[~2024-10-25] MED LIST: AMLO1TAB24 PO; BENA25CA4 PO; ISOVUE-300 61% 100ML VIAL As Ordered ONE; LEVO1TAB38 PO; LIDOCAINE 1% MDV 20ML VIAL As Ordered ONE; METO50TA7 PO; PROHANCE 279.3MG/ML 5ML VIAL As Ordered ONE
== END ==
LOC: M RAD 12:59
PROVIDERS: ATTEND Physician Assistant
DX: M25.512 Pain in left shoulder (principal)
CPT/HCPCS: 23350; 73223; 77002; A9576; Q9967

== ENCOUNTER → 2025-03-06 | Outpatient (CLI) | payer OTHER ==
[~2025-03-06] MED LIST changes: +ADDE10CA3 PO; +BUSP10TA PO; -ISOVUE-300 61% 100ML VIAL As Ordered ONE; -LIDOCAINE 1% MDV 20ML VIAL As Ordered ONE; -PROHANCE 279.3MG/ML 5ML VIAL As Ordered ONE; +TRAZ1TAB10 PO
== END ==
LOC: M EKG 13:40
PROVIDERS: ATTEND Anesthesiology
DX: Z01.818 Encounter for other preprocedural examination (principal); I10 Essential (primary) hypertension

== ENCOUNTER → 2025-03-11 | Outpatient (REF) | payer OTHER | LOC: M LAB REF 17:48 | PROVIDERS: ATTEND Internal Medicine Nephrology | DX: M62.82 Rhabdomyolysis (principal) ==

== ENCOUNTER 2025-03-18 06:04 | Day surgery (SDC) | payer OTHER ==
[~2025-03-18] VITALS: Ht 175.3 cm; Wt 86.4 kg
[2025-03-18] MEDS: LR 1,000 ML IV SCH (06:56)
[2025-03-18] MEDS ORDERED: LIDOCAINE 1% SDV 5 ML VIAL PN ONE (07:00)
[2025-03-18] MEDS ORDERED: SUGAMMADEX SODIUM 500 MG/5 ML VIAL As Ordered ONE (07:03)
[2025-03-18] MEDS ORDERED: ONDANSETRON 4MG 2ML VIAL As Ordered ONE (07:03)
[2025-03-18] MEDS ORDERED: ROCURONIUM BROMIDE 50MG/5ML VIAL As Ordered ONE (07:03)
[2025-03-18] MEDS ORDERED: LIDOCAINE 2% 100 MG/5 ML SDV (FOR ANES.) As Ordered ONE (07:03)
[2025-03-18] MEDS ORDERED: KETOROLAC 30 MG/ML 1 ML VIAL As Ordered ONE (07:03)
[2025-03-18] MEDS ORDERED: ACETAMINOPHEN 1000MG/100ML IV BAG As Ordered ONE (07:03)
[2025-03-18] MEDS ORDERED: dexAMETHasone 4 MG/ML 1 ML VIAL As Ordered ONE (07:03)
[2025-03-18] MEDS: VANCOMYCIN 1000MG/20ML VIAL As Ordered ONE (07:14)
[2025-03-18] MEDS: MIDAZOLAM INJ 2 MG/2 ML VIAL IV PRN (07:40)
[2025-03-18] MEDS: ROPIvacaine 0.5% 30ML VIAL PN ONE (07:42)
[2025-03-18] MEDS: ceFAZolin SODIUM 2 GM in DEXTROSE 5% (D5W) ADV/MINI-BAG 50 ML IV ONE (08:19)
[2025-03-18] MEDS: TRANEXAMIC ACID 100 MG/ML 10ML VIAL As Ordered ONE (08:25)
[2025-03-18] MEDS: LIDOCAINE 1% SDV 30 ML VIAL As Ordered ONE (08:51)
[2025-03-18] MEDS ORDERED: HYDROmorphone HCL 2 MG/ML 1 ML VIAL As Ordered ONE (09:13)
[2025-03-18] MEDS: LIDOCAINE W/EPINEPHrine 1% 20 ML VIAL As Ordered ONE (09:46)
[2025-03-18] MEDS ORDERED: LABETALOL 100 MG/20 ML VIAL As Ordered ONE (09:48)
[2025-03-18] MEDS: EPINEPHrine 1 MG/ML INJ 30 ML MD-VIAL As Ordered ONE (11:00)
[2025-03-18] MEDS ORDERED: ONDANSETRON 4MG 2ML VIAL IV PRN (12:50)
[2025-03-18] MEDS ORDERED: HYDROMORPHONE HCL 0.5 MG/0.5 ML SYRINGE IV PRN (12:50)
[2025-03-18] MEDS ORDERED: DILA2TAB6 PO (12:54)
[2025-03-18 13:58] VITALS: BP 120/62; TEMP 96.8; O2SAT 98
== END 2025-03-18 13:59 | disposition home or self-care (01) ==
LOC: M SDC 06:04
PROVIDERS: ATTEND Neuromusculoskeletal Medicine, Sports Medicine
DX: M25.312 Other instability, left shoulder (principal); M75.42 Impingement syndrome of left shoulder; M94.212 Chondromalacia, left shoulder; M19.012 Primary osteoarthritis, left shoulder; G56.02 Carpal tunnel syndrome, left upper limb; M25.712 Osteophyte, left shoulder; I10 Essential (primary) hypertension; Z79.899 Other long term (current) drug therapy; Z85.71 Personal history of Hodgkin lymphoma; Z92.21 Personal history of antineoplastic chemotherapy; F90.9 Attention-deficit hyperactivity disorder, unspecified type; Z92.3 Personal history of irradiation; D57.3 Sickle-cell trait; F41.1 Generalized anxiety disorder
CPT/HCPCS: 29806; 29824; 29826; 64721; C1713; J0131; J0169; J0690; J1100; J1171; J1885; J1920; J2250; J2405; J3010

== ENCOUNTER → 2025-04-18 | Outpatient (REF) | payer OTHER ==
[~2025-04-18] MED LIST changes: +DILA2TAB6 PO
[2025-04-18 12:47] LABS: SEMEN APPEARANCE OPAQUE (OPAQUE); SEMEN VISCOSITY VISCOUS (LIQUID); SEMEN VOLUME 5.8 ML (2.0-5.0); SEMEN WBC <=1 M/ml (<=1 M/ml)
== END ==
LOC: M LAB REF 11:48
PROVIDERS: ATTEND Registered Nurse
DX: N46.9 Male infertility, unspecified (principal)

== ENCOUNTER 2025-05-21 14:06 | Outpatient (RCR) | payer OTHER | END 2025-05-27 | LOC: M PT 14:06 | PROVIDERS: ATTEND Physician Assistant | DX: S43.432A Superior glenoid labrum lesion of left shoulder, initial encounter (principal) ==

== ENCOUNTER 2025-06-13 06:59 | Outpatient (RCR) | payer OTHER | END 2025-06-27 | LOC: M PT 06:59 | PROVIDERS: ATTEND Physician Assistant | DX: S43.432A Superior glenoid labrum lesion of left shoulder, initial encounter (principal); X58.XXXA Exposure to other specified factors, initial encounter; Y92.9 Unspecified place or not applicable ==